=== PATIENT | male | born 1995 | race African-American/Black ===

== ENCOUNTER 2018-12-08 13:16 | Emergency (ER) | payer OTHER ==
--- NOTE | 2018-12-08 14:06 | EDM.PDOC ---
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 He describes it as sudden onset and constant. Nothing makes better or worse. 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 He denies any F/C, N/V/D, hematuria, dysuria, penile discharge, new sexual partners, h/o STD (last checked 1 year ago), h/o kidney stone, trauma to scrotum. No other symptoms at this time. PCP is in [place] where he is from. Left Flank Pain Score (Numeric/FACES): 7 - Related Data Allergies Allergy/AdvReac Type Severity Reaction Status Date / Time No Known Allergies Allergy Verified 12/08/18 13:20 Home Meds: Home Meds . [No Known Home Meds] 12/08/18 [History] Past Medical History HEENT History: Reports: Impaired Vision Other HEENT History: wears glasses Other Genitourinary History: torsion of the right testicle - Past Surgical History HEENT Surgical History: Reports: Oral Surgery Social & Family History - Tobacco Use Smoking Status *Q: Never Smoker - Caffeine Use Caffeine Use: Reports: Soda, Tea - Recreational Drug Use Recreational Drug Use: No ED ROS GENERAL - Review of Systems Review Of Systems: See Below Constitutional: Reports: No Symptoms. Denies: Fever, Chills, Decreased Appetite HEENT: Reports: No Symptoms Respiratory: Reports: No Symptoms. Denies: Shortness of Breath, Cough Cardiovascular: Reports: No Symptoms Endocrine: Reports: No Symptoms GI/Abdominal: Reports: Abdominal Pain (LLQ). Denies: Diarrhea, Decreased Appetite, Distension, Hematochezia, Melena, Nausea, Vomiting : Reports: Flank Pain (L side). Denies: Discharge, Dysuria, Frequency, Hematuria, Urgency Musculoskeletal: Reports: No Symptoms Skin: Reports: No Symptoms Neurological: Reports: No Symptoms Psychiatric: Reports: No Symptoms Hematologic/Lymphatic: Reports: No Symptoms Immunologic: Reports: No Symptoms ED EXAM, RENAL/ - Physical Exam Exam: See Below Exam Limited By: No Limitations General Appearance: Alert, WD/WN, Mild Distress Eye Exam: Bilateral Eye: EOMI, Normal Inspection, PERRL Ears: Normal External Exam, Hearing Grossly Normal Throat/Mouth: Normal Inspection, Normal Lips, Normal Teeth, Normal Gums, Normal Oropharynx, Normal Voice, No Airway Compromise Head: Atraumatic, Normocephalic Neck: Normal Inspection, Supple, Non-Tender, Full Range of Motion Respiratory/Chest: No Respiratory Distress, Lungs Clear, Normal Breath Sounds, No Accessory Muscle Use, Chest Non-Tender Cardiovascular: Normal Peripheral Pulses, Regular Rate, Rhythm, No Edema, No Gallop, No JVD, No Murmur, No Rub GI/Abdominal: Normal Bowel Sounds, Soft, Non-Tender, No Organomegaly, No Distention, No Abnormal Bruit, No Mass (Male) Exam: No Hernia, Scrotal Swelling, Scrotum Tenderness (L), Testicular Tenderness (L). No: Scrotum Tenderness (R) (previously removed), Testicular Tenderness (R) (previously removed), Urethral Discharge Rectal (Males) Exam: Deferred Back Exam: Normal Inspection, Full Range of Motion, NT Extremities: Normal Inspection, Normal Range of Motion, Non-Tender, Normal Capillary Refill, No Pedal Edema Psychiatric: Normal Affect, Normal Mood Skin Exam: Warm, Dry, Intact, Normal Color, No Rash, Increased Warmth (L scrotum ) Course - Vital Signs Last Recorded V/S: Last Vital Signs Temp 98.4 F 12/08/18 13:20 Pulse 69 12/08/18 13:20 Resp 13 12/08/18 13:20 BP 124/65 12/08/18 13:20 Pulse Ox 100 12/08/18 13:20 - Orders/Labs/Meds Orders: Active Orders 24 hr Category Date Time Status KUB [Abdomen 1V Flat] [CR] Stat Exams 12/08/18 13:51 Taken Scrotum and Contents [US] Stat Exams 12/08/18 13:51 Taken CULTURE URINE [RM] Stat Lab 12/08/18 14:54 Ordered GC/CHLAMYDIA BY PCR [MOLEC] Stat Lab 12/08/18 13:51 Ordered Labs: Laboratory Tests 12/08/18 12/08/18 12/08/18 Range/Units 13:30 14:08 14:08 WBC 7.99 (4.23-9.07) K/mm3 RBC 5.19 (4.63-6.08) M/mm3 Hgb 15.6 (13.7-17.5) gm/L Hct 44.1 (40.1-51.0) % MCV 85.0 (79.0-92.2) fl MCH 30.1 (25.7-32.2) pg MCHC 35.4 (32.2-35.5) g/dl RDW Std Deviation 38.4 (35.1-43.9) fL Plt Count 195 (163-337) K/mm3 MPV 9.7 (9.4-12.3) fl Neut % (Auto) 81.2 H (34.0-67.9) % Lymph % (Auto) 12.5 L (21.8-53.1) % [place] % (Auto) 6.1 (5.3-12.2) % Eos % (Auto) 0 L (0.8-7.0) Baso % (Auto) 0.1 (0.1-1.2) % Neut # (Auto) 6.48 H (1.78-5.38) K/mm3 Lymph # (Auto) 1.00 L (1.32-3.57) K/mm3 [place] # (Auto) 0.49 (0.30-0.82) K/mm3 Eos # (Auto) 0.00 L (0.04-0.54) K/mm3 Baso # (Auto) 0.01 (0.01-0.08) K/mm3 Sodium 142 (136-145) mEq/L Potassium 4.0 (3.5-5.1) mEq/L Chloride 106 (98-107) mEq/L Carbon Dioxide 27 (21-32) mEq/L Anion Gap 13.0 (5-15) BUN 12 (7-18) mg/dL Creatinine 1.1 (0.7-1.3) mg/dL Est Cr Clr Drug Dosing 88.95 mL/min Estimated GFR (MDRD) > 60 (>60) mL/min BUN/Creatinine Ratio 10.9 L (14-18) Glucose 96 (74-106) mg/dL Calcium 9.2 (8.5-10.1) mg/dL Total Bilirubin 0.4 (0.2-1.0) mg/dL AST 31 (15-37) U/L ALT 72 H (16-63) U/L Alkaline Phosphatase 94 (46-116) U/L C-Reactive Protein < 0.2 (<1.0) mg/dL Total Protein 7.6 (6.4-8.2) g/dl Albumin 4.3 (3.4-5.0) g/dl Globulin 3.3 gm/dL Albumin/Globulin Ratio 1.3 (1-2) Urine Color Yellow (Yellow) Urine Appearance Clear (Clear) Urine pH 8.0 (5.0-8.0) Ur Specific [place] 1.020 (1.005-1.030) Urine Protein 1+ H (Negative) Urine Glucose (UA) Negative (Negative) Urine Ketones Negative (Negative) Urine Occult Blood Negative (Negative) Urine Nitrite Negative (Negative) Urine Bilirubin Negative (Negative) Urine Urobilinogen 0.2 (0.2-1.0) Ur Leukocyte Esterase Negative (Negative) Urine RBC 5-10 H (0-5) /hpf Urine WBC 0-5 (0-5) /hpf Ur Epithelial Cells Not seen (0-5) /hpf Urine Bacteria Few (FEW) /hpf Urine Mucus Many H (FEW) /hpf Meds: Medications Discontinued Medications Generic Name Dose Route Start Last Admin Trade Name Freq PRN Reason Stop Dose Admin Ketorolac Tromethamine 30 mg 12/08/18 14:54 12/08/18 15:02 Toradol IM 12/08/18 14:55 30 mg ONETIME ONE Administration - Re-Assessments/Exams Free Text/Narrative Re-Assessment/Exam: 12/08/18 14:11 I have ordered CBC, CMP, CRP, UA, Urine culture, KUB, Testicular U/S, Chlamydia/ Gonorrhea 12/08/18 14:27 UA WNL, no sign of infection, 5-10 RBCs. 12/08/18 14:46 CBC WNL, no sign of systemic infection. 12/08/18 14:55 Testicular U/S shows no arterial flow- concerning for torsion. Will call to see if he can be transferred [facility] to [place] for treatment. 12/08/18 15:12 CMP WNL. CRP <0.2. 12/08/18 15:16 KUB reviewed by myself and Dr. Abbasi, no sign of renal stones, constipation seen. Chlamydia/Gonorrhea and Urine Culture pending. I talked with Percy Oleary and urologist Dr. Pelayo has accepted the pt, Dr. Yuan in the ED to do the initial acceptance. Departure - Departure Time of Disposition: 15:19 Disposition: DC/Tfer to Acute Hospital 02 Condition: Undetermined Clinical Impression: Testicular torsion, Constipation - Discharge Information *PRESCRIPTION DRUG MONITORING PROGRAM REVIEWED*: Not Applicable *COPY OF PRESCRIPTION DRUG MONITORING REPORT IN PATIENT [place]: Not Applicable Instructions: Testicular Self-Exam, [id number], Constipation, Adult, Easy-to- Read, Testicular Torsion, Adult Referrals: PCP,None [Primary Care Provider] - Forms: ED Department Discharge - My Orders Last 24 Hours: My Active Orders 12/08/18 13:51 KUB [Abdomen 1V Flat] [CR] Stat Scrotum and Contents [US] Stat GC/CHLAMYDIA BY PCR [MOLEC] Stat 12/08/18 14:54 CULTURE URINE [RM] Stat - Assessment/Plan Last 24 Hours: My Active Orders 12/08/18 13:51 KUB [Abdomen 1V Flat] [CR] Stat Scrotum and Contents [US] Stat GC/CHLAMYDIA BY PCR [MOLEC] Stat 12/08/18 14:54 CULTURE URINE [RM] Stat
[2018-12-08] MEDS ORDERED: Ketorolac 30 MG/ML SDV IM ONE (14:54)
--- NOTE | 2018-12-08 15:41 | US ---
Testicular ultrasound: Multiple real-time images were obtained of the left testicle. Right testicle not visualized. History of previous orchiectomy is noted. Small left-sided hydrocele is seen. Heterogeneous left-sided epididymis is noted. No intratesticular abnormality is seen. No arterial or venous blood flow is seen within the testicle. Impression: 1. No venous or arterial blood flow is seen within left testicle highly suspicious for testicular torsion. 2. Heterogeneous left-sided epididymis. 3. Previous right-sided orchiectomy. Diagnostic code #5
--- NOTE | 2018-12-09 08:13 | CR ---
Abdomen: Supine view of the abdomen was obtained. Comparison: No prior abdominal x-ray. Bowel gas pattern is normal. No abnormal calcifications or soft tissue abnormality is seen. Mild scoliosis is noted. Impression: 1. Nothing acute is seen on supine abdominal x-ray. Diagnostic code #2
== END 2018-12-08 16:00 ==
LOC: JD.ED 13:16
DX: N44.00 Torsion of testis, unspecified (principal); K59.00 Constipation, unspecified
CPT/HCPCS: 36415; 74018; 76870; 80053; 81001; 85025; 86140; 87086; 93975; 96372; 99284; J1885